=== PATIENT | female | born 1945 | race Caucasian/White ===

== ENCOUNTER 2021-05-01 16:25 | Emergency (ER) | payer MEDICARE, SELFPAY ==
[2021-05-01 16:26] VITALS: BP 185/93; PULSE 106; RESP 16; TEMP 35.8; O2SAT 93; BMI 34.3
--- NOTE | 2021-05-01 16:39 | EDS_ITS ---
HPI History of Present Illness Chief Complaint: Upper Extremity Injury Informant: patient Narrative Narrative: Patient was walking up a wet muddy hill and slipped. She fell forward and hit her left shoulder. She states she did not hit her head. This was a mechanical fall. This was not syncope. She never lost consciousness. The only area that hurts is her left shoulder. She is right-hand dominant. She has no trouble breathing. No back or spine pain. She was able to get up and come in here on her own. Motion makes it worse and keeping it still makes it better. [facility] Medical History Asthma Diabetes GERD (gastroesophageal reflux disease) Allergy/AdvReac Type Severity Reaction Status Date / Time codeine Allergy Nausea Verified 05/01/21 16:29 indomethacin [From Indocin] Allergy Shortness Verified 05/01/21 16:29 of breath Surgical History History of arthroscopy History of hysterectomy History of tonsillectomy and adenoidectomy Social History Smoking Status: Never smoker ROS ROS ED Constitutional Constitutional ED: Denies fever(s) Eyes Eyes: Denies blurry vision or change in vision Cardiovascular Cardiovascular: Denies chest pain or palpitations Respiratory/Chest Respiratory/Chest: Denies cough or dyspnea Gastrointestinal Gastrointestinal: Denies nausea or vomiting Musculoskeletal Musculoskeletal: Reports other Details: Left shoulder pain. See history of present illness. ; Denies back pain or neck pain Integumentary Denies rash Neurologic Neurologic: Denies headache(s) Hematologic/Lymphatic Hematologic/Lymphatic: Reports other; Denies easy bleeding or easy bruising EXAM Physical Exam Const Vital Signs: 05/01/21 16:26 Temperature 96.5 F L Temperature Source Temporal Pulse Rate 106 H Respiratory Rate 16 Blood Pressure 185/93 H Blood Pressure Mean 123 Pulse Ox 93 Oxygen Delivery Method Room Air Positive well nourished and well developed General Appearance ED: well developed and NAD; Negative for cyanotic or diaphoretic HEENT normocephalic and atraumatic; Negative for tenderness Eyes EOMs intact bilaterally Neck full ROM and supple General: Negative for tenderness Chest Wall inspection of chest normal and palpation of chest normal Resp normal respiratory effort and clear to auscultation bilaterally Resp Narrative: No asymmetry. Auscultation: Negative for rales, rhonchi or wheezes Cardio regular rate Back/Spine Cervical Spine: Negative for cervical spine tenderness Thoracic Spine / Upper Back: Negative for thoracic spinal tenderness Lumbar Spine / Lower Back: Negative for lumbar spinal tenderness Extremity normal to inspection Extremity Narrative: No visible contusion or abrasion. However, she does have tenderness at the proximal humerus area. She does not have tenderness at the acromion or clavicle or scapula. No tenderness further down the arm elbow forearm wrist or hand. Distal pulses sensation and clay miller are normal. Neuro oriented x3, no focal motor deficits and no sensory deficits noted Sensorium / Orientation: alert Psych mental status grossly normal Skin Lesions: no lesions Rashes: no rashes MDM MDM MDM Narrative Medical decision making narrative: 4 view x-ray of the left shoulder looked at by me and read by radiology does show a slight impacted fracture proximal humerus/humeral head. It is overall in good position. Patient is neurologically intact. She has good deltoid area sensation. She will be placed in a sling. She has hydrocodone at home that she takes for arthritis. That should be appropriate. I will give her number of orthopedic physician for follow-up. I explained this does need repeat x-ray. She should also be very careful with ambulation as a sling will throw off her balance. Discharge Plan Triage Chief Complaint: Upper Extremity Injury ED Provider: Davey Palma Dx/Rx/DC Orders Clinical Impression: Fall from slipping, Closed fracture of head of left humerus Instructions: ED Fracture, Shoulder Primary Care Provider: Edward Jacobs Referrals: Juvenal Pablo DO [STAFF PHYSICIAN] - 1 Week Disposition Disposition: Home, Self Care
--- NOTE | 2021-05-01 16:55 | RAD_ITS ---
STUDY: X-RAY - LEFT SHOULDER REASON FOR EXAM: Female, 76 years old. trauma, pain, fall onto left shoulder TECHNIQUE: 4 view(s) of the shoulder. COMPARISON: None. FINDINGS: There is moderate degenerative arthrosis of the glenohumeral articulation. There is degenerative arthrosis of the acromioclavicular joint without inferior osseous spur formation. Normal acromion. Nondisplaced fracture of the humeral neck. Diffuse soft tissue swelling. Normal visualized pulmonary apex. RAD/Shoulder min 2 Views IMPRESSION: Humeral neck fracture. Electronically Signed: Ashish Fernandez MD (Brooks) at 17:10 EST , Service support ,
== END 2021-05-01 18:11 | disposition home or self-care (01) ==
PROVIDERS: Emergency Provider Emergency Medicine; PCP Family Medicine
DX: S42.292A Other displaced fracture of upper end of left humerus, initial encounter for closed fracture (principal); W19.XXXA Unspecified fall, initial encounter; Y93.01 Activity, walking, marching and hiking
CPT/HCPCS: 73030; 99282

== ENCOUNTER 2022-04-06 20:52 | Inpatient (IN) | payer MEDICARE, SELFPAY ==
[2022-04-06 20:53] VITALS: BP 146/61; PULSE 86; RESP 19; TEMP 36.9; BMI 37.9
--- NOTE | 2022-04-06 22:06 | EKG12_ITS ---
Test Reason : DIZZINESS Blood Pressure : / mmHG Vent. Rate : 066 BPM Atrial Rate : 066 BPM P-R Int : 198 ms QRS Dur : 138 ms QT Int : 418 ms P-R-T Axes : 041 005 030 degrees QTc Int : 438 ms Normal sinus rhythm with sinus arrhythmia Right bundle branch block Abnormal ECG Confirmed by JNU RAMOS, GLO ([id number]), electronic news gathering editor RENAN GRIFFITH ([id number]) on 04/12/2022 10:34:13 AM Referred By: JAMI Confirmed By:EMILEE BARAHONA MD
--- NOTE | 2022-04-06 22:07 | EDS_ITS ---
HPI History of Present Illness Chief Complaint: Dizziness Detail of Chief Complaint: Dizziness and near syncope Informant: patient Narrative Narrative: Patient presents the emergency department complaint of dizziness and near syncopal episodes today since 6 PM about 5 episodes. Patient states initially she noticed it when she got out of the vehicle to walk to the house where she felt lightheaded and sweaty. Patient fell like she was going to pass out but did not. Patient describes some chest heaviness. She denies any radiation of chest pain to the arm or neck or jaw. She denies recent illness. Patient states that she had several more of these type of episodes this evening. Patient has no heart history. She does complain of some swelling to her left leg ever since she had a wound on it with infection that has since cleared up over the last several months. Patient denies shortness of breath. She denies abdominal pain. She denies blood in her stool or black tarry stool. PFSH PFS Medical History Asthma Diabetes GERD (gastroesophageal reflux disease) Home Medications hydrocodone-acetaminophen 5-325mg 5mg-325mg 1 tab PO Q6H PRN pain 3 days #10 tabs 05/01/21 [Rx Last Taken Unknown] ibuprofen 125 mg-acetaminophen 250 mg tablet (Advil Dual Action) 2 tab PO Q8H PRN arthritis 04/07/22 [History Last Taken Unknown] naproxen sodium 220 mg capsule (Aleve) 220 mg PO Q8H arthritis 04/07/22 [History Last Taken Unknown] Allergy/AdvReac Type Severity Reaction Status Date / Time codeine Allergy Nausea Verified 04/06/22 21:00 indomethacin [From Indocin] Allergy Shortness Verified 04/06/22 21:00 of breath Family History (Updated 04/07/22 @ 02:[address] Bc Aebrnathy MD) Other COPD (chronic obstructive pulmonary disease) Diabetes Heart disease Hypertension Surgical History History of arthroscopy History of hysterectomy History of tonsillectomy and adenoidectomy Social History Smoking Status: Never smoker ROS ROS ED Review of Systems ROS Unobtainable: other Constitutional Constitutional ED: Reports lethargy; Denies chills, fever(s), sweats or weight loss Eyes Eyes: Denies blurry vision, change in vision or diplopia ENT ENT ED: Denies rhinorrhea or sore throat Cardiovascular Cardiovascular: Reports chest pain; Denies orthopnea or racing heartbeat Respiratory/Chest Respiratory/Chest: Denies cough, dyspnea, dyspnea on exertion, orthopnea or s putum Gastrointestinal Gastrointestinal: Denies abdominal pain, diarrhea, nausea or vomiting Genitourinary Genitourinary ED: Denies dysuria, hematuria or urinary frequency Musculoskeletal Musculoskeletal: Reports other Details: Left leg swelling ; Denies arthralgias, back pain, myalgias or neck pain Integumentary Denies abscess, Abrasions or rash Neurologic Neurologic: Denies headache(s) or weakness Psychiatric Psychiatric: Denies anxiety, depression or suicidal thoughts Endocrine Endocrinology: Denies polydipsia, polyphagia or polyuria Hematologic/Lymphatic Hematologic/Lymphatic: Denies easy bleeding, easy bruising or lymphadenopathy Allergic/Immunologic Allergic/Immunologic ED: Denies mouth swelling, tongue swelling or urticaria EXAM Physical Exam Const Vital Signs: 04/06/22 20:53 04/06/22 20:59 04/06/22 23:13 Temperature 98.4 F Temperature Source Temporal Pulse Rate 86 Pulse Rate [Lying] Pulse Rate [Sitting (for 1 minute prior to obtaining)] Pulse Rate [Standing (for 1 minute prior to obtaining)] Respiratory Rate 19 H 17 Respiratory Effort Normal Non-Labored Respiratory Pattern Normal Blood Pressure 146/61 H Blood Pressure [Lying] Blood Pressure [Sitting (for 1 minute prior to obtaining)] Blood Pressure [Standing (for 1 minute prior to obtaining)] Blood Pressure Mean 89 Blood Pressure Mean [Lying] Blood Pressure Mean [Sitting (for 1 minute prior to obtaining)] Blood Pressure Mean [Standing (for 1 minute prior to obtaining)] Pulse Ox 98 Oxygen Delivery Method Room Air Room Air 04/07/22 00:28 Temperature Temperature Source Pulse Rate Pulse Rate [Lying] 89 Pulse Rate [Sitting (for 1 minute prior to obtaining)] 95 Pulse Rate [Standing (for 1 minute prior to obtaining)] 94 Respiratory Rate Respiratory Effort Respiratory Pattern Blood Pressure Blood Pressure [Lying] 132/55 H Blood Pressure [Sitting (for 1 minute prior to obtaining)] 148/78 H Blood Pressure [Standing (for 1 minute prior to obtaining)] 147/80 H Blood Pressure Mean Blood Pressure Mean [Lying] 80 Blood Pressure Mean [Sitting (for 1 minute prior to obtaining)] 101 Blood Pressure Mean [Standing (for 1 minute prior to obtaining)] 102 Pulse Ox Oxygen Delivery Method Positive well nourished and well developed General Appearance ED: well developed and NAD HEENT Reports TM's clear and moist mucous membranes normocephalic and atraumatic; Negative for trauma or tenderness Tympanic Membrane ED: Yes TM's clear Eyes PERRL and EOMs intact bilaterally General Eye ED: Negative for pale conjunctiva or scleral icterus Neck no lymphadenopathy, supple and no JVD General: Negative for tenderness Chest Wall inspection of chest normal and palpation of chest normal Chest: Negative for tenderness Resp normal respiratory effort and clear to auscultation bilaterally Effort and Inspection: Negative for respiratory distress or pain with movement Auscultation: Negative for rhonchi, wheezes or diminished lung sounds Cardio regular rate, regular rhythm, S1 normal heart sound, S2 normal heart sound and no murmurs Peripheral Pulses: pulses 2+ throughout GI normal to inspection, nondistended, normoactive bowel sounds, soft to palpation, non-tender, non-distended and no masses Back/Spine no CVA tenderness and no thoracic nor lumbar tenderness Extremity Extremity Narrative: +2 edema left lower extremity compared to the right. Negative Homans' sign. No ropes or cords palpated. No evidence of cellulitis. General Extremety ED: Yes edema General Extremity: edema Neuro oriented x3, CN's II-XII intact bilaterally, no sensory deficits noted and gait normal Sensorium / Orientation: awake, alert, oriented to person, oriented to place and oriented to time Motor Exam: strength 5/5 throughout and strength abnormal Psych mental status grossly normal Skin no rashes or lesions noted and no wounds MDM MDM MDM Narrative Medical decision making narrative: IV line established on arrival. Orthostatic vital signs obtained were normal. CBC with differential was normal. Chemistries and initial troponin were negative. Urinalysis was normal. Delta troponin obtained was elevated at 66. Patient was given aspirin. Patient was started on heparin drip. Case discussed with hospitalist will evaluate patient for admission. Venous Doppler of left lower extremity was negative for DVT. Lab Data Attestation: I reviewed the patient's lab results. Labs: Laboratory Results - last 24 hr 04/06/22 04/06/22 04/06/22 21:04 21:04 22:39 WBC 8.2 RBC 4.88 Hgb 12.9 Hct 40.0 MCV 82.0 MCH 26.4 L MCHC 32.3 RDW Std Deviation 42.2 RDW Coeff of Ron 14.3 Plt Count 205 MPV 9.9 Immature Gran % (Auto) 0.500 Neut % (Auto) 71.7 H Lymph % (Auto) 20.6 [place] % (Auto) 5.5 Eos % (Auto) 1.5 Baso % (Auto) 0.2 Absolute Neuts (auto) 5.9 Absolute Lymphs (auto) 1.69 Nucleated RBC % 0 Sodium 139 Potassium 3.8 Chloride 107 Carbon Dioxide 26.0 Anion Gap 6 BUN 15 Creatinine 0.55 Estim Creat Clear Calc 38.35 Est GFR (MDRD) Af Amer 137 Est GFR (MDRD) Non-Af 114 BUN/Creatinine Ratio 27.3 H Glucose 122 H Calcium 9.4 Troponin I High Sens 15 Urine Color Yellow Urine Clarity Clear Urine pH 6.0 Ur Specific [place] 1.020 Urine Protein 30 H Urine Glucose (UA) Normal Urine Ketones 5 H Urine Occult Blood Negative Urine Nitrite Negative Urine Bilirubin Negative Urine Urobilinogen Normal Ur Leukocyte Esterase 25 H Urine RBC 0 SEEN Urine WBC 0-5 SEEN Ur Squamous Epith Cells 0-5 SEEN Urine Bacteria 0 SEEN Urine Mucus 0 SEEN 04/07/22 00:50 WBC RBC Hgb Hct MCV MCH MCHC RDW Std Deviation RDW Coeff of Ron Plt Count MPV Immature Gran % (Auto) Neut % (Auto) Lymph % (Auto) [place] % (Auto) Eos % (Auto) Baso % (Auto) Absolute Neuts (auto) Absolute Lymphs (auto) Nucleated RBC % Sodium Potassium Chloride Carbon Dioxide Anion Gap BUN Creatinine Estim Creat Clear Calc Est GFR (MDRD) Af Amer Est GFR (MDRD) Non-Af BUN/Creatinine Ratio Glucose Calcium Troponin I High Sens 66 H Urine Color Urine Clarity Urine pH Ur Specific [place] Urine Protein Urine Glucose (UA) Urine Ketones Urine Occult Blood Urine Nitrite Urine Bilirubin Urine Urobilinogen Ur Leukocyte Esterase Urine RBC Urine WBC Ur Squamous Epith Cells Urine Bacteria Urine Mucus Radiography Diagnostic Testing: Clinical Impression(s) from Imaging Studies Venous Duplex 04/06/22 22:09 IMPRESSION: No finding of DVT. Limited DOPPLER evaluation. Electronically Signed: Tra Rodriguez MD at 23:11 EST , 1 view chest are obtained interpreted by myself as no acute disease process. Radiology in agreement. EKG Initial EKG: Attestation: I personally reviewed and interpreted this EKG as follows: Comments: Sinus rhythm with a right bundle branch block with no acute ST segment changes Discharge Plan Dx/Rx/DC Orders Clinical Impression: Dizziness, Non-ST elevated myocardial infarction Disposition Disposition: Acute Care Hospital [facility]
--- NOTE | 2022-04-06 22:09 | US_ITS ---
STUDY: VENOUS DOPPLER ULTRASOUND - LEFT LOWER EXTREMITY REASON FOR EXAM: Female, 77 years old. LT LEG SWELLING X 3 MONTHS TECHNIQUE: Ultrasound evaluation of the deep vein system to include bolaños-scale imaging and compression was performed. Bolaños-scale imaging and Doppler sonographic evaluation, including duplex spectral analysis and qualitative color flow sonography, was performed. COMPARISON: None. FINDINGS: Common Femoral Vein: Normal compression. Normal color Doppler. Common Femoral Vein/Greater Saphenous Junction: Normal compression. Deep Femoral Vein: Not seen Femoral Proximal: Normal compression. Femoral Middle: Normal compression. Normal color Doppler. Femoral Distal: Normal compression. Popliteal Vein: Normal compression. Normal color Doppler. Posterior Tibial Vein: Normal compression. Peroneal Vein: Normal compression. There is no demonstrated deep venous thrombosis. Left lower leg swelling and edema. Normal compression, DOPPLER of the right common femoral vein. US/Venous Duplex Imag/Limited/Uni IMPRESSION: No finding of DVT. Limited DOPPLER evaluation. Electronically Signed: Tra Rodriguez MD at 23:11 EST ,
[2022-04-06] MEDS: 0.9% Normal Saline 1,000 ML 1000 ML IV (22:15)
[2022-04-06 22:20] LABS: Absolute Lymphocyte Count 1.69 X10^3/uL (0.83-4.51); Absolute Neutrophil Count 5.9 X10^3/uL (2.0-7.7); Basophil# 0.02 X10^3/uL; Basophil% 0.2 % (0-1); Eosinophil# 0.12 X10^3/uL; Eosinophils% 1.5 % (0-5); Hemoglobin 12.9 g/dL (12.0-15.0); Lymphocyte # 1.69 X10^3/ul (0.83-4.51); Lymphocyte % 20.6 % (19-41); Mean Corp Hgb Conc 32.3 g/dL (32-36); Mean Corpuscular Hgb 26.4 pg (27.0-32.0); Mean Platelet Vol. 9.9 fl (6.2-12.0); Monocyte# 0.45 X10^3/uL; Monocyte% 5.5 % (0-10); NRBC Flagged by Analyzer 0 % (0-5); Neutrophil # 5.88 X10^3/uL (2.7-7.7); Neutrophil % 71.7 % (47-70); Platelet Count 205 K/mm3 (150-450); RBC Distribution Width CV 14.3 % (11.6-14.6); RBC Distribution Width SD 42.2 fl (35.1-43.9); Red Blood Count 4.88 M/mm3 (4.2-5.4); White Blood Count 8.2 K/mm3 (4.4-11.0)
[2022-04-06 22:43] LABS: Bacteria 0 SEEN /hpf (None Seen); Mucous, Urine 0 SEEN /hpf (<or=2+); Red Blood Cells-Urine 0 SEEN /hpf (0-5)
[2022-04-06 22:46] LABS: Anion Gap 6 (5-15); BUN 15 mg/dL (7-18); BUN/Creat Ratio 27.3 RATIO (10-20); Calcium,Total 9.4 mg/dL (8.5-10.1); Chloride 107 mmol/L (98-107); Creatinine, Serum 0.55 mg/dL (0.55-1.02); EST Glomerular Filtration Rate 114 mL/min (>60); Est Glom Filt Rate - Afr Amer 137 mL/min (>60); Estimated Creatinine Clearance 38.35 ml/min; Glucose 122 mg/dL (74-106); Potassium 3.8 mmol/L (3.5-5.1); Sodium Level 139 mmol/L (136-145); Troponin-I HS 15 pg/mL (3.0-54.0)
[2022-04-06 22:56] LABS: Color, Urine Yellow (Yellow); Glucose, Dipstick Normal (Normal); Ketone-Dipstick 5 mg/dl (Negative); Leukocyte Esterase-Dipstick 25 /ul (Negative); Nitrite-Dipstick Negative (Negative); Occult Blood-Urine Negative /ul (Negative); Protein-Dipstick 30 mg/dl (Negative); Urine Bilirubin Dipstick Negative (Negative); Urine Clarity Clear (Clear); Urine Urobilinogen Normal (Normal)
[2022-04-06 23:04] LABS: Squamous Epithelial Cells - UA 0-5 SEEN /hpf (5-10); White Blood Cells 0-5 SEEN /hpf (0-5)
[2022-04-06 23:13] VITALS: RESP 17; O2SAT 98
[2022-04-07] VITALS (18 sets, daily range): BP systolic 129–152; BP diastolic 55–82; PULSE 60–95; RESP 16–20; TEMP 36.4–36.7; O2SAT 19–98; BMI 35.4
[2022-04-07 01:23] LABS: Troponin-I HS 66 pg/mL (3.0-54.0)
--- NOTE | 2022-04-07 01:38 | RAD_ITS ---
INDICATION: chest pain EXAMINATION/TECHNIQUE: X-RAY - XR Chest 1 View COMPARISON: None. FINDINGS: LINES/DEVICES: None. LUNGS: No consolidation, edema or effusion. No pneumothorax. MEDIASTINUM AND CARDIOVASCULAR STRUCTURES: Cardiac silhouette not enlarged. Central airways and mediastinal contour are unremarkable. BONES AND SOFT TISSUES: Status post right shoulder arthroplasty. Degenerative changes in the left shoulder throughout the visualized spine. No acute osseous abnormality.. RAD/Chest 1 View (Portable) IMPRESSION: No acute cardiopulmonary disease. Electronically Signed: Ignacio Marie MD at 2:18 EST ,
--- NOTE | 2022-04-07 01:44 | HP.PCM.HOS_ITS ---
HPI - General General Date of Admission: 04/07/22 Date of Service: 04/07/22 Chief Complaint: presyncope HPI Narrative LUCIO GR, is a 77 F with a significant history of diabetes mellitus; asthma; and GERD who presents emergency department with multiple episodes of presyncope. Has symptoms started about 3 hours before presentation. For the majority of the symptoms she was standing/walking but on one episode she was sitting down. Associated with her symptoms is lightheadedness, diaphoresis, and chest heaviness. Also she felt nauseous. Patient is a retired nurse. Because patient's bilateral hands and bilateral feet where tremulous, patient's who is disabled felt that he could not take care of her and called paramedics. When paramedics arrived the patient systolic blood pressure was about 196. Patient denies history of hypertension. Patient report that her father from a massive heart attack when her father was 67 years PENDING SALE TO [facility] Medical History Asthma Diabetes GERD (gastroesophageal reflux disease) Home Medications hydrocodone-acetaminophen 5-325mg 5mg-325mg 1 tab PO Q6H PRN pain 3 days #10 tabs 05/01/21 [Rx Last Taken Unknown] Allergy/AdvReac Type Severity Reaction Status Date / Time codeine Allergy Nausea Verified 04/06/22 21:00 indomethacin [From Indocin] Allergy Shortness Verified 04/06/22 21:00 of breath Family History (Updated 04/07/22 @ 02:[address] Bc Abernathy MD) Other COPD (chronic obstructive pulmonary disease) Diabetes Heart disease Hypertension Surgical History History of arthroscopy History of hysterectomy History of tonsillectomy and adenoidectomy Social History Smoking Status: Never smoker ROS ROS Narrative Pertinent positives and pertinent negatives as noted in HPI. All other systems were reviewed and are negative Vital Signs Vital Signs Vital Signs: 04/06/22 20:53 04/06/22 20:59 04/06/22 23:13 Temperature 98.4 F Temperature Source Temporal Pulse Rate 86 Pulse Rate [Lying] Pulse Rate [Sitting (for 1 minute prior to obtaining)] Pulse Rate [Standing (for 1 minute prior to obtaining)] Respiratory Rate 19 H 17 Respiratory Effort Normal Non-Labored Respiratory Pattern Normal Blood Pressure 146/61 H Blood Pressure [Lying] Blood Pressure [Sitting (for 1 minute prior to obtaining)] Blood Pressure [Standing (for 1 minute prior to obtaining)] Blood Pressure Mean 89 Blood Pressure Mean [Lying] Blood Pressure Mean [Sitting (for 1 minute prior to obtaining)] Blood Pressure Mean [Standing (for 1 minute prior to obtaining)] Pulse Ox 98 Oxygen Delivery Method Room Air Room Air 04/07/22 00:28 Temperature Temperature Source Pulse Rate Pulse Rate [Lying] 89 Pulse Rate [Sitting (for 1 minute prior to obtaining)] 95 Pulse Rate [Standing (for 1 minute prior to obtaining)] 94 Respiratory Rate Respiratory Effort Respiratory Pattern Blood Pressure Blood Pressure [Lying] 132/55 H Blood Pressure [Sitting (for 1 minute prior to obtaining)] 148/78 H Blood Pressure [Standing (for 1 minute prior to obtaining)] 147/80 H Blood Pressure Mean Blood Pressure Mean [Lying] 80 Blood Pressure Mean [Sitting (for 1 minute prior to obtaining)] 101 Blood Pressure Mean [Standing (for 1 minute prior to obtaining)] 102 Pulse Ox Oxygen Delivery Method Weight Weight: 97.2 kg Body Mass Index (BMI) 37.9 Physical Exam Narrative Physical exam: General: Well-nourished, well-developed. Head: Normocephalic, atraumatic, no tenderness Eyes: Vision is grossly intact. EOMI ENT, no trauma, moist mucous membranes, no rhinorrhea Neck: Nontender, No thyromegaly. CVS: Regular rate and rhythm. S1-S2 present. No murmur, gallop or rub. Respiratory : clear to auscultation bilaterally, chest wall nontender, no wheezing Abdomen: Soft, nontender, nondistended, normal bowel sounds, no masses : Deferred Back: Nontender, no CVA tenderness. Extremities: Nontender full range of motion. 2+ edema of left lower extremity (attributed to injury) Skin: Normal color, no trauma, abrasions Neuro: Alert, oriented, cranial nerves II through XII grossly intact. Psychiatry: Normal mood. Normal affect. Not depressed. Not anxious. Results Lab / Micro Data Result Diagrams: 04/06/22 21:04 04/06/22 21:04 Labs: Laboratory Results - last 24 hr 04/06/22 21:04: WBC 8.2, RBC 4.88, Hgb 12.9, Hct 40.0, MCV 82.0, MCH 26.4 L, MCHC 32.3, RDW Std Deviation 42.2, RDW Coeff of Ron 14.3, Plt Count 205, MPV 9.9, Immature Gran % (Auto) 0.500, Neut % (Auto) 71.7 H, Lymph % (Auto) 20.6, [place] % (Auto) 5.5, Eos % (Auto) 1.5, Baso % (Auto) 0.2, Absolute Neuts (auto) 5.9, Absolute Lymphs (auto) 1.69, Nucleated RBC % 0 04/06/22 21:04: Sodium 139, Potassium 3.8, Chloride 107, Carbon Dioxide 26.0, Anion Gap 6, BUN 15, Creatinine 0.55, Estim Creat Clear Calc 38.35, Est GFR (MDRD) Af Amer 137, Est GFR (MDRD) Non-Af 114, BUN/Creatinine Ratio 27.3 H, Glucose 122 H, Calcium 9.4, Troponin I High Sens 15 04/06/22 22:39: Urine Color Yellow, Urine Clarity Clear, Urine pH 6.0, Ur Specific [place] 1.020, Urine Protein 30 H, Urine Glucose (UA) Normal, Urine Ke tones 5 H, Urine Occult Blood Negative, Urine Nitrite Negative, Urine Bilirubin Negative, Urine Urobilinogen Normal, Ur Leukocyte Esterase 25 H, Urine RBC 0 SEEN, Urine WBC 0-5 SEEN, Ur Squamous Epith Cells 0-5 SEEN, Urine Bacteria 0 SEEN, Urine Mucus 0 SEEN 04/07/22 00:50: Troponin I High Sens 66 H Radiology Impression Venous Duplex 04/06/22 22:09 IMPRESSION: No finding of DVT. Limited DOPPLER evaluation. Electronically Signed: Tra Rodriguez MD at 23:11 EST , Assessment & Plan Assessment/Plan (1) Non-ST elevated myocardial infarction: (2) Diabetes: PLAN: Plan Non STEMI Place on a monitored bed at U Actual CXR image was independently visualized. No acute cardiopulmonary process was noted. I agree with radiologist interpretation Actual EKG tracing was independently visualized. EKG tracing showed right bundle branch block with T wave inversions and flattening without any ST elevations. Initial troponin at the emergency department was 15. Repeat was 66. Patient's heart score is 6 points; started on heparin drip at emergency department and continued. Echocardiogram ordered ASA 81 mg p.o. daily ordered Morphine as needed for pain ordered check lipid panel. Serial cardiac enzymes ordered Stat EKG as needed for chest pain Diabetes mellitus Patient with mild hyperglycemia on presentation Monitor Accu-Cheks Correction scale insulin ordered. DVT prophylaxis: Not indicated as patient has been started on heparin drip for NSTEMI. Charges/Coding Visit Charges Inpatient E&M: 46256 Init Hosp L3
[2022-04-07] MEDS: Aspirin 81 MG TAB.CHEW 324 MG PO (01:50)
[2022-04-07] MEDS: Heparin Injection (Vial) 5,000 UNIT/ML VIAL 7500 UNIT IV (01:57)
[2022-04-07] MEDS: HEPARIN/D5w 25,000 UNITS 25,000 UNITS/250 ML IV.SOLN. 14 UNITS CONT INF (01:58)
[2022-04-07 02:00] LABS: Partial Thromboplast Time 24.8 Seconds (24.1-36.2); Prothrombin Time (Protime)PT. 13.3 SECONDS (11.7-14.9)
--- NOTE | 2022-04-07 03:02 | ECHOD_ITS ---
Reason For Study: Chest Pain Procedure This was a 2D Doppler, Color Flow transthoracic echocardiogram. Bubble Study Performed. Exam performed portable in patient room. Left Ventricle Normal LV size. Left ventricular systolic function is normal. The estimated ejection fraction is 65 %. No regional wall motion abnormalities noted. Right Ventricle Normal RV size. Normal systolic function. Atria Normal left atrium. Normal right atrium. Bubble contrast study negative for right to left interatrial shunt. Mitral Valve Normal mitral valve. Mild (1+) eccentric mitral valve insufficiency. Tricuspid Valve Normal tricuspid valve. Mild tricuspid valve insufficiency. Pulmonary artery systolic pressure is 20 mmHg. Aortic Valve Normal aortic valve. Trisinus/trileaflet aortic valve. Pulmonic Valve Normal pulmonic valve. Great Vessels Normal aortic root. The pulmonary artery is normal size. Normal inferior vena cava. Pericardium/Pleural No pericardial effusion. Medication Performed a rapid injection of agitated mix of 9 cc saline and 1cc air to assess for atrial septal defect. MMode/2D Measurements & Calculations LVIDd: 5.0 cm IVSd: 1.5 cm Ao root diam: 3.5 cm LVIDs: 3.1 cm LVPWd: 1.0 cm LA dimension: 4.1 cm RVDd: 3.8 cm FS: 38.3 % LAV(MOD-bp): 68.6 ml LA A4 area: 22.3 cm2 RA A4 area: 19.0 cm2 LAV(MOD-bp) Indexed: 35.5 ml/m2 LAV(MOD-sp2): 65.1 ml LAV(MOD-sp4): 67.7 ml Time Measurements MV dec time: 0.23 sec Doppler Measurements & Calculations MV E max norberto: 74.2 cm/sec Lat Peak E' Norberto: 13.6 cm/sec Med Peak E' Norberto: 8.7 cm/sec MV A max norberto: 96.2 cm/sec E/E' lat: 5.5 E/E' med: 8.5 MV E/A: 0.77 MV V2 max: 105.1 cm/sec MV P1/2t max norberto: 99.5 cm/sec Ao V2 max: 201.4 cm/sec MV max P.4 mmHg MV P1/2t: 76.7 msec Ao max P.2 mmHg MV V2 mean: 57.2 cm/sec MV dec slope: 379.8 cm/sec2 Ao V2 mean: 131.0 cm/sec MV mean P.6 mmHg Ao mean P.9 mmHg MV V2 VTI: 30.3 cm MVA(P1/2t): 2.9 cm2 Ao V2 VTI: 41.9 cm AV (velocity ratio): 0.81 LV V1 max: 144.8 cm/sec MR max norberto: 611.5 cm/sec PA V2 max: 139.5 cm/sec LV V1 max P.4 mmHg MR max P.6 mmHg PA V2 mean: 92.5 cm/sec LV V1 mean P.6 mmHg MR mean norberto: 467.2 cm/sec LV V1 mean: 100.9 cm/sec MR mean P.1 mmHg LV V1 VTI: 33.9 cm MR VTI: 196.9 cm TR max norberto: 193.5 cm/sec TR max P.0 mmHg ECHO/Echo Complete Interpretation Summary Normal LV size. Left ventricular systolic function is normal. The estimated ejection fraction is 65 %. Pulmonary artery systolic pressure is 20 mmHg. Bubble contrast study negative for right to left interatrial shunt. Ordering Physician: Bc Abernathy Referring Physician: Edward Jacobs Performed By: Siddhartha Muñoz RCS
--- NOTE | 2022-04-07 03:02 | EKG12_ITS ---
Test Reason : ADMISSION EKG Blood Pressure : / mmHG Vent. Rate : 066 BPM Atrial Rate : 066 BPM P-R Int : 200 ms QRS Dur : 138 ms QT Int : 418 ms P-R-T Axes : 046 026 -08 degrees QTc Int : 438 ms Normal sinus rhythm with sinus arrhythmia Right bundle branch block Abnormal ECG When compared with ECG of 06-APR-2022 23:00, MANUAL COMPARISON REQUIRED, DATA IS UNCONFIRMED Confirmed by ABEL RAMOS, HANH ([id number]), newspaper or periodical editor RENAN GRIFFITH ([id number]) on 04/12/2022 11:31:26 AM Referred By: TOOTIE Confirmed By:HANH ROMAN MD
[2022-04-07 05:09] LABS: Cholesterol 140 mg/dL (200); High Density Lipoprotein 85 mg/dL; Triglycerides 55 mg/dL; Very Low Density Lipoprotein 11 mg/dL (5-40)
[2022-04-07 05:15] LABS: Troponin-I HS 91 pg/mL (3.0-54.0)
[2022-04-07 07:15] LABS: Bedside Glucose 137 mg/dL (74-106)
--- NOTE | 2022-04-07 07:29 | CON.PCM.CA_ITS ---
Assessment & Plan Assessment/Plan (1) Non-ST elevated myocardial infarction: PLAN: She does present with dizziness and is noted to have a non-ST elevation myocardial infarction by cardiac enzymes. Her chest discomfort was not very typical. I would recommend on the basis of her rising enzymes and had presyncope that we evaluate her with a left heart catheterization. Depending on the findings further recommendations will be made. The risk benefits alternatives have been explained to her and she understands and agrees to proceed. (2) Dizziness: PLAN: She does have mild dizziness which appears to have resolved. Her blood work appears to be stable. I will like us to obtain an echocardiogram to exclude any valvular abnormalities though it does not appear to be apparent on her physical exam. Thank you for allowing me to participate in the care of your patient. Please don't hesitate to call if any issues arise. HPI Consult Data Date of Consult: 04/07/22 HPI Narrative HPI Narrative: LUCIO GR, is a 77 F who presents to the emergency room with a presyncopal episode as well as chest heaviness. She said that she was performing her usual activities and was suddenly seized by this yesterday. She has had no previous history of hypertension but has a history of diabetes. This happened on 2 other occasions yesterday. The emergency medical squad was called and her blood pressure was noted to be elevated when they saw her. She was brought to the emergency room she was noted to be in sinus rhythm with a right bundle branch block. Cardiac enzymes were obtained which started rising. Cardiology was called for further evaluation and management. She denies any further chest pain at this particular time she has had no previous cardiac issues. PENDING SALE TO [facility] Medical History Asthma Diabetes GERD (gastroesophageal reflux disease) Home Medications hydrocodone-acetaminophen 5-325mg 5mg-325mg 1 tab PO Q6H PRN pain 3 days #10 tabs 05/01/21 [Rx Last Taken Unknown] ibuprofen 125 mg-acetaminophen 250 mg tablet (Advil Dual Action) 2 tab PO Q8H PRN arthritis 04/07/22 [History Last Taken Unknown] naproxen sodium 220 mg capsule (Aleve) 220 mg PO Q8H arthritis 04/07/22 [History Last Taken Unknown] Allergy/AdvReac Type Severity Reaction Status Date / Time codeine Allergy Nausea Verified 04/06/22 21:00 indomethacin [From Indocin] Allergy Shortness Verified 04/06/22 21:00 of breath Family History Other COPD (chronic obstructive pulmonary disease) Diabetes Heart disease Hypertension Surgical History History of arthroscopy History of hysterectomy History of tonsillectomy and adenoidectomy Social History Smoking Status: Never smoker ROS Constitutional Constitutional: Denies fever(s) or weight loss Eyes Eyes: Reports systems reviewed and no addt'l complaints, except as documented ENT HEENT: Reports systems reviewed and no addt'l complaints, except as documented Cardiovascular Cardiovascular: Denies chest pain at rest, chest pain with activity, dyspnea at rest, dyspnea on exertion, edema, palpitations or paroxysmal nocturnal dyspnea Respiratory/Chest Respiratory/Chest: Denies dyspnea on exertion, productive cough, shortness of breath at rest or shortness of breath with exertion Gastrointestinal Gastrointestinal: Denies change in bowel habits, nausea, vomiting or weight changes Genitourinary Genitourinary: Denies difficulty urinating Musculoskeletal Musculoskeletal: Denies joint stiffness or muscle weakness Integumentary Integumentary: Denies lesions Neurologic Neurologic: Denies dizziness or syncope Psychiatric Psychiatric: Denies anxiety Endocrine Endocrinology: Denies excessive sweating or fatigue Hematologic/Lymphatic Hematologic/Lymphatic: Denies anemia Allergic/Immunologic Allergic/Immunologic: Denies seasonal rhinorrhea Physical Exam Const alert, oriented x3 and no apparent distress General Appearance: cooperative HEENT hearing grossly normal bilaterally Head and Scalp: atraumatic Eyes EOMs intact bilaterally Neck General: normal visual inspection Chest inspection of chest normal and palpation of chest normal Resp normal respiratory effort Auscultation: clear to auscultation bilaterally Cardio regular rate, regular rhythm, S1 normal heart sound and S2 normal heart sound Jugular Venous Distention: JVD GI normal to inspection, nondistended, normoactive bowel sounds Extremity normal capillary refill and no pedal edema Peripheral Pulses: Yes pulses 2+ throughout and femoral pulses present Skin no rashes or lesions noted Neuro oriented x3 and CN's II-XII intact bilaterally Psych Appearance: grossly normal and appropriate Risk Stratification Risk Stratification Applicable: Yes Age >/= 65: Yes >/= 3 CAD Risk Factors (HTN, HLD, DM, family hx of CAD, or current smoker): No Aspirin Use in the Past 7 Days: No Severe Angina (>/= episodes in 24 hours): No EKG ST Changes >/= 0.5mm: No Positive Cardiac Marker: Yes CASSY Risk Stratification Score: 2 CASSY % Risk: 8% Risk Objective Data Vital Signs: Vital Signs Temp Pulse Resp BP Pulse Ox O2 Del Method 98.0 F 78 18 150/67 H 98 Room Air 04/07/22 03:03 04/07/22 03:03 04/07/22 03:03 04/07/22 03:03 04/07/22 03:03 04/07/22 03:40 Oxygen Delivery Method Room Air Weight: 200 lb 6.403 oz Body Mass Index (BMI) 35.4 Intake & Output: Intake and Output for Last 24 Hours 04/05/22 04/06/22 04/07/22 23:59 23:59 23:59 Intake Total 1000 / 1000 Balance 1000 / 1000 Lab / Micro Data Result Diagrams: 04/06/22 21:04 04/06/22 21:04 Labs: Laboratory Results - last 24 hr 04/06/22 21:04: WBC 8.2, RBC 4.88, Hgb 12.9, Hct 40.0, MCV 82.0, MCH 26.4 L, MCHC 32.3, RDW Std Deviation 42.2, RDW Coeff of Ron 14.3, Plt Count 205, MPV 9.9, Immature Gran % (Auto) 0.500, Neut % (Auto) 71.7 H, Lymph % (Auto) 20.6, [place] % (Auto) 5.5, Eos % (Auto) 1.5, Baso % (Auto) 0.2, Absolute Neuts (auto) 5.9, Absolute Lymphs (auto) 1.69, Nucleated RBC % 0 04/06/22 21:04: Sodium 139, Potassium 3.8, Chloride 107, Carbon Dioxide 26.0, Anion Gap 6, BUN 15, Creatinine 0.55, Estim Creat Clear Calc 38.35, Est GFR (MDRD) Af Amer 137, Est GFR (MDRD) Non-Af 114, BUN/Creatinine Ratio 27.3 H, Glucose 122 H, Calcium 9.4, Troponin I High Sens 15 04/06/22 22:39: Urine Color Yellow, Urine Clarity Clear, Urine pH 6.0, Ur Specific [place] 1.020, Urine Protein 30 H, Urine Glucose (UA) Normal, Urine Ketones 5 H, Urine Occult Blood Negative, Urine Nitrite Negative, Urine Bilirubin Negative, Urine Urobilinogen Normal, Ur Leukocyte Esterase 25 H, Urine RBC 0 SEEN, Urine WBC 0-5 SEEN, Ur Squamous Epith Cells 0-5 SEEN, Urine Bacteria 0 SEEN, Urine Mucus 0 SEEN 04/07/22 00:50: Troponin I High Sens 66 H 04/07/22 01:40: PT 13.3, INR 1.0, APTT 24.8 04/07/22 04:35: Triglycerides 55, Cholesterol 140, LDL Cholesterol 44, VLDL Cholesterol 11, HDL Cholesterol 85 04/07/22 04:35: Troponin I High Sens 91 H 04/07/22 06:20: POC Glucose 137 H Cardiology Labs/Tests 04/06/22 21:04: WBC 8.2, RBC 4.88, Hgb 12.9, Hct 40.0, MCV 82.0, MCH 26.4 L, MCHC 32.3, Plt Count 205, MPV 9.9, Immature Gran % (Auto) 0.500, Neut % (Auto) 71.7 H, Lymph % (Auto) 20.6, [place] % (Auto) 5.5, Eos % (Auto) 1.5, Baso % (Auto) 0.2, Absolute Neuts (auto) 5.9, Nucleated RBC % 0 04/06/22 21:04: Sodium 139, Potassium 3.8, Chloride 107, Carbon Dioxide 26.0, Anion Gap 6, BUN 15, Creatinine 0.55, Est GFR (MDRD) Af Amer 137, Est GFR (MDRD) Non-Af 114, BUN/Creatinine Ratio 27.3 H, Glucose 122 H, Calcium 9.4 04/06/22 22:39: Urine Color Yellow, Urine Clarity Clear, Urine pH 6.0, Ur Specific [place] 1.020, Urine Protein 30 H, Urine Glucose (UA) Normal, Urine Ketones 5 H, Urine Occult Blood Negative, Urine Nitrite Negative, Urine Bilirubin Negative, Urine Urobilinogen Normal, Ur Leukocyte Esterase 25 H, Urine RBC 0 SEEN, Urine WBC 0-5 SEEN 04/07/22 01:40: PT 13.3, INR 1.0, APTT 24.8 04/07/22 04:35: Triglycerides 55, Cholesterol 140, LDL Cholesterol 44, VLDL Cholesterol 11, HDL Cholesterol 85 Rhythm: EKG: ECHO: Stress Test: Cardiac Cath: PCI: CT Surgery: Holter monitor: EPS: PPM: CXR: Chest CT Scan: Radiography Diagnostic Testing: Radiology Impression Venous Duplex 04/06/22 22:09 IMPRESSION: No finding of DVT. Limited DOPPLER evaluation. Electronically Signed: Tra Rodriguez MD at 23:11 EST , Chest X-Ray 04/07/22 01:38 IMPRESSION: No acute cardiopulmonary disease. Electronically Signed: Ignacio Marie MD at 2:18 EST ,
--- NOTE | 2022-04-07 08:14 | CASEMGMT ---
According to the [employer] medicare website, the following are in-network tertiary facilities: [facility], [place], [facility], [facility], [facility], [facility], and . Kelby FENG CM
[2022-04-07] MEDS: 0.9% Normal Saline 1,000 ML 15 ML IV (09:42)
[2022-04-07] MEDS: Aspirin E.C. 81 MG Tablet PO (09:42)
--- NOTE | 2022-04-07 11:01 | CL.D_ITS ---
Patient Name: LUCIO GR Study Date: 04/07/2022 Performing: Matthew Frances MD Ht: 63 inches 160.02 cm : 1945 Wt: 200.4 lbs 90.9 kg Age: 77 Gender: female BSA: 1.94 PROCEDURE(S) PERFORMED [id number])LHC/COR DC11-([id number])AO ROOT ANGIO WITH HEART CATH CLINICAL PROFILE AND INDICATIONS Indications: Suspected CAD Heart Failure: None Stress/Imaging Stress/Image Study Performed: No CAD Presentations: Symptom unlikely to be ischemic. CONCLUSIONS Non obstructive coronary arteries Calcified Lad with no high grade stenosis RECOMMENDATIONS Medical therapy DESCRIPTION OF PROCEDURE The patient arrived to the procedure lab. The risks and benefits of the procedure as well as a full description of our services here and current unavailability of surgical backup were fully explained to the patient and/or their significant other prior to the catheterization. The Timeout was completed, verifying the correct patient and procedure. The patient's procedural site was prepped and draped in the usual fashion. Local anesthetic was given subcutaneously to right radial region with Lidocaine 2%. Using a modified Seldinger technique, arterial access was obtained via the right radial artery, a 6Fr sheath was inserted. Left Coronary Artery selective angiography was performed in multiple views using a 5 Fr. 4.0 [place] catheter. Right Coronary Artery selective angiography was then performed in multiple views using a 5 Fr. JR 4 catheter. Ascending (root) aorta selective angiography was then performed in single view. Ascending (root) aorta selective angiography was then performed in single view.The arterial sheath was pulled and a TR Band was applied for hemostasis w/ 10ml air CORONARY ANGIOGRAPHY DOMINANCE: Right Dominant LEFT HEART ASSESSMENT Left Ventricular Ejection Fraction: by LV Gram 60 % Normal LV wall motion Normal Left Ventricular systolic function LEFT MAIN: Mild calcification LEFT ANTERIOR DESCENDING ARTERY: Moderate luminal irregularities up to 50% MID LAD: Moderate calcification DIAGONAL 1: Ostial - 70 % Stenosis CIRCUMFLEX ARTERY: Angiographically normal RIGHT CORONARY ARTERY: Mild luminal irregularities less than 30% AORTIC ROOT: Dilated COMPLICATIONS No Complications PROCEDURE MEDICATIONS Versed 1 mg IV Fentanyl 50 mcg IV Versed 1 mg IV Oxygen: 2 L/min via nasal cannula Heparin given IA 04/07/2022 10:35:51 Verapamil 2.5mg, Ntg 100mcgs, 3000 units of Heparin given IA 04/07/2022 10:35:51 IV Bolus: .9 NaCl ml total 04/07/2022 10:41:02 SUMMARY OF HEMODYNAMIC DATA Time AIR REST ECG 10:19:05 Art 182/42 (77) 10:30:25 AO 88/39 (60) SA 10:39:26 AO 117/53 (80) 10:51:09 Signed By Matthew Frances MD On 04/07/2022 11:01:06 Matthew Frances MD
--- NOTE | 2022-04-07 11:45 | CASEMGMT ---
JUNG JUSTICE Assessment: Face to Face with patient for initial transition planning/care coordination assessment. JUNG JUSTICE introduced self and role at [facility], pt voices understanding and consents to assessment. Pt is lying in bed in no distress on room air. Pt is A/Ox 4 and answers all questions appropriately. Care providers, pharmacy,?and demographics verified/updated. ? Presentation: Pt c/o sudden onset dizzy, lightheaded, heaviness Admitting dx: NSTEMI PCP: Arlene Specialists: Retinal specialist; neurologist for parkinsons Preferred Pharmacy: [facility] Insurance: [facility] Prescription Benefit:? [employer] Living Will/HPOA: Pt does have LW/HPOA and is aware they are not on file at [facility]. Pt states her , Errol Nuñez, is HPOA. LNOK: Errol Nuñez, /HPOA; Andreina Blood, friend Living Arrangements: Pt lives with and cares for in 1 story home and states no concerns at home. Pt states has a muscular disease and she assists him with all care. Pt is independent with ADL's. Pt states her neighbors are assisting at home at this time. Transportation: Pt drives self and states no transportation concerns. DME/HHC: Pt states they have the following DME in home: cane, rollator, raised toilet seat, multiple grab bars, mohan lift, and walk/roll-in shower. Pt states does not use equipment for herself. Pt states no hx of HHC or SNF. Pt states no concerns with going home at time of discharge. Pt is retired. Pt states does not smoke cigarettes but does occasionally drink ETOH. Pt voices no further concerns/needs. CM to follow for any further discharge planning/needs. Advised pt to ask for CM if any further questions/concerns/needs arise, voices understanding. Pt Goal: Home ? Plan[place]G JUSTICE
--- NOTE | 2022-04-07 11:57 | CHAPLAIN ---
Type of Pastoral Visit _x__ Initial Visit ___ Follow-up Visit ___ On-call Visit ___ General Patient Visit ___ Spiritual Assessment ___ Family Conference ___ Bereavement ___ Rapid Response ___ Code Blue ___ Other (describe below) Pastoral Care Referral From _x__ Patient ___ Family ___ Nurse ___ Physician ___ Park Landscape Architect ___ Garbage Truck Dispatcher ___ Other (describe below) Sacrament/Intervention _x__ Active listening ___ Anointing ___ Yazidi ___ Bereavement ___ Communion ___ Martha exploration ___ _x__ Life review _x__ Prayer ___ Reconciliation ___ Sacrament of Sick _x__ Supportive presence ___ Wedding ___ Other (describe below) Pastoral Comments patient had just returned from the [employer]; pt came in by squad last night and states that was all frightening; pt reports that procedure went well and that she is getting great care; pt concern is for her disabled who is home alone, but has neighbors that watch out for him; 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
[2022-04-07] MEDS: 0.9% Normal Saline 1,000 ML 75 ML IV (11:59)
--- NOTE | 2022-04-07 14:14 | PCM.DC.SUM ---
Providers Date of Admission: 04/07/22 Date of Discharge: 04/07/22 Primary Care Physician: Dr. Edward Jacobs MD Consultations 04/07/22 03:02 Consult: Cardiology Routine Consulting Provider: Marvin Brasher Reason for Consult: Chest Pain EMERGENT Consult: No MD Notified: Yes Date Notified: 04/07/22 Time Notified: 01:41 Method of Notification: Text Reason For Visit: NSTEMI Diagnosis Discharge Diagnosis (1) Dizziness: Status: Acute Code(s): R42 - Dizziness and giddiness (2) Elevated troponin I level: Status: Acute Code(s): R77.8 - Other specified abnormalities of plasma proteins Medications at Discharge Home Medications hydrocodone-acetaminophen 5-325mg 5mg-325mg 1 tab PO Q6H PRN pain 3 days #10 tabs 05/01/21 ibuprofen 125 mg-acetaminophen 250 mg tablet (Advil Dual Action) 2 tab PO Q8H PRN arthritis 04/07/22 naproxen sodium 220 mg capsule (Aleve) 220 mg PO Q8H arthritis 04/07/22 Hospital Course Operations None Procedures 2-D Echocardiogram and Cardiac catheterization Summary of Care Provided Minutes Spent on Discharge: 30 Hospital Course: Mrs. Nuñez is a 77-year-old white female who presented to the emergency department at [facility] on 04/07/2022 with presyncopal complaints. The patient reported that she had multiple episodes of presyncope that started about 3 hours prior to presentation. She was predominantly standing and walking during these episodes however she had 1 episode while sitting down. Associated symptoms were lightheadedness, diaphoresis, nausea, and chest heaviness. The patient did develop bilateral hand and feet tremor during an episode which concerned her so he called the paramedics. He is disabled at baseline and she is his primary caregiver. When the paramedics arrived her systolic blood pressure was about 196 and the patient denies any history of hypertension. Patient did indicate her father of a massive heart attack when she was 66. Heart score on presentation was reported at 6. Her EKG showed some T wave inversions and flattening without any ST elevation and a right bundle branch block. Her initial troponin in the emergency department was 15 however repeat was 66. She was started on a heparin drip as well as aspirin and as needed morphine for pain. A lipid panel was obtained during her hospital course and was unremarkable. Cardiac enzymes peaked at 91 and the patient was evaluated by cardiology. Given her troponin elevation she was taken to the Case Management Director. Cardiac catheterization revealed nonobstructive coronary artery disease with a calcified LAD and no high-grade stenosis. LAD showed moderate luminal irregularities up to 50%, 70% ostial stenosis of the first diagonal, angiographically normal circumflex artery, and mild luminal irregularities of less than 30% in the RCA. Aortic root was felt to be dilated. An echocardiogram was obtained and showed an EF of 65% with pulmonary artery systolic pressure of 20 mmHg and a negative bubble study. The aorta was reported as unremarkable. Patient had no further elevated blood pressures or presyncope events. Orthostatic blood pressures were obtained and found to be normal. Given the fact this is the first time this is ever occurred to her we deferred any further testing including an event or Holter monitor at this time however if she has recurrent episodes I would strongly advise this via pain as an outpatient. No new medication changes were made. The patient was instructed to avoid NSAIDs given recent dye load for cardiac catheterization for the next 48 hours. It was recommended she use Tylenol up to 3 g daily for pain during this time. Discharge diagnoses: Troponin elevation -suspect related to hypertension Nonobstructive CAD DM-2-diet controlled Osteoarthritis Obesity-BMI 35.5 Physical Exam Const alert, oriented x3, no apparent distress, healthy appearing and well nourished Constitutional Narrative: Obese, older, white female sitting up in bed, appears comfortable nontoxic, nursing at bedside General Appearance: cooperative, comfortable, well kempt and well developed Orientation / Consciousness: awake, oriented to person, oriented to place and oriented to time Exam Limitations: no limitations Nutritional Appearance: obese HEENT normocephalic, head/scalp atraumatic, hearing grossly normal bilaterally and moist oral mucous membranes Resp normal respiratory effort, no retractions, no use of accessory muscles and clear to auscultation bilaterally Auscultation: Negative for crackles, rhonchi or wheezes Cardio regular rate, regular rhythm, S1 normal heart sound, no murmurs, no rub, no gallops and no clicks GI normal to inspection, nondistended, normoactive bowel sounds, soft to palpation and non-tender Extremity no clubbing, cyanosis or edema Extremity Narrative: 2+ pedal pulses, right radial pulse with compression device post cath in place, no signs of bleeding or ecchymosis Skin no rashes or lesions noted, no wounds, skin turgor normal and no jaundice Neuro oriented x3, CN's II-XII intact bilaterally, moves all extremities and no focal motor deficits Speech: speech normal Psych affect normal Psych Narrative: Very pleasant and appropriately interactive Weight / BMI Weight Weight: 90.9 kg Body Mass Index (BMI) 35.4 ABG / Lab / Microbiology Data Result Diagrams: 04/06/22 21:04 04/06/22 21:04 Laboratory: Laboratory Results - last 24 hr 04/06/22 21:04: WBC 8.2, RBC 4.88, Hgb 12.9, Hct 40.0, MCV 82.0, MCH 26.4 L, MCHC 32.3, RDW Std Deviation 42.2, RDW Coeff of Ron 14.3, Plt Count 205, MPV 9.9, Immature Gran % (Auto) 0.500, Neut % (Auto) 71.7 H, Lymph % (Auto) 20.6, [place] % (Auto) 5.5, Eos % (Auto) 1.5, Baso % (Auto) 0.2, Absolute Neuts (auto) 5.9, Absolute Lymphs (auto) 1.69, Nucleated RBC % 0 04/06/22 21:04: Sodium 139, Potassium 3.8, Chloride 107, Carbon Dioxide 26.0, Anion Gap 6, BUN 15, Creatinine 0.55, Estim Creat Clear Calc 38.35, Est GFR (MDRD) Af Amer 137, Est GFR (MDRD) Non-Af 114, BUN/Creatinine Ratio 27.3 H, Glucose 122 H, Calcium 9.4, Troponin I High Sens 15 04/06/22 22:39: Urine Color Yellow, Urine Clarity Clear, Urine pH 6.0, Ur Specific [place] 1.020, Urine Protein 30 H, Urine Glucose (UA) Normal, Urine Ketones 5 H, Urine Occult Blood Negative, Urine Nitrite Negative, Urine Bilirubin Negative, Urine Urobilinogen Normal, Ur Leukocyte Esterase 25 H, Urine RBC 0 SEEN, Urine WBC 0-5 SEEN, Ur Squamous Epith Cells 0-5 SEEN, Urine Bacteria 0 SEEN, Urine Mucus 0 SEEN 04/07/22 00:50: Troponin I High Sens 66 H 04/07/22 01:40: PT 13.3, INR 1.0, APTT 24.8 04/07/22 04:35: Triglycerides 55, Cholesterol 140, LDL Cholesterol 44, VLDL Cholesterol 11, HDL Cholesterol 85 04/07/22 04:35: Troponin I High Sens 91 H 04/07/22 06:20: POC Glucose 137 H 04/07/22 08:08: APTT 93.0 H* Radiography Diagnostic Testing: Radiology Impression Venous Duplex 04/06/22 22:09 IMPRESSION: No finding of DVT. Limited DOPPLER evaluation. Electronically Signed: Tra Rodriguez MD at 23:11 EST , Chest X-Ray 04/07/22 01:38 IMPRESSION: No acute cardiopulmonary disease. Electronically Signed: Ignacio Marie MD at 2:18 EST , Echocardiogram 04/07/22 03:02 Interpretation Summary Normal LV size. Left ventricular systolic function is normal. The estimated ejection fraction is 65 %. Pulmonary artery systolic pressure is 20 mmHg. Bubble contrast study negative for right to left interatrial shunt. Ordering Physician: Bc Abernathy Referring Physician: Edward Jacobs Performed By: Siddhartha Muñoz RCS Meaningful Use Info Meaningful Use Diagnoses (Choose all that apply): None applicable Discharge Plan Admission Admit Date/Time: 04/07/22 01:36 Primary Reason for Your Visit: Presyncope and Chest pain Attending Provider: Melina Fay Primary Care Provider: Edward Jacobs Consulting Providers: Marvin Brasher ; Bc Abernathy Instructions Additional Instructions / Restrictions: While NSAIDs on hold okay to use 1 g of Tylenol scheduled every 8 hours with total Tylenol intake of 3 g or less daily Discharge Orders/Prescriptions Prescriptions: Continued hydrocodone-acetaminophen 5-325 mg tablet 1 tab PO Q6H PRN (Reason: pain) 3 Days Qty: 10 0RF Held naproxen sodium [Aleve] 220 mg Capsule 220 mg PO Q8H Hold Instructions: Resume on 04/10/22. Advil Dual Action 125-250 mg Tablet 2 tab PO Q8H PRN (Reason: arthritis) Hold Instructions: Resume on 04/10/22. Referrals / Follow Up: Edward Jacobs MD [Primary Care Provider] - Within 1 Month Disposition Disposition (needs filled in before D/C Order can be placed): Home, Self Care Charges/Coding Visit Charges Inpatient E&M: 20865 Disch Hosp
[2022-04-07 14:45] LABS: Bedside Glucose 141 mg/dL (74-106)
[2022-04-07] MEDS: Acetaminophen 500 MG Tablet 1000 MG PO (15:28)
== END 2022-04-07 17:01 | disposition home or self-care (01) | DRG 287 ==
LOC: ED 04-07 01:46 → PCU 04-07 02:06
PROVIDERS: Admitting Provider Hospitalist; Emergency Provider Emergency Medicine; PCP Family Medicine; Visit Provider Internal Medicine
DX: I25.10 Atherosclerotic heart disease of native coronary artery without angina pectoris (principal); E11.65 Type 2 diabetes mellitus with hyperglycemia; I10 Essential (primary) hypertension; I45.10 Unspecified right bundle-branch block; J45.909 Unspecified asthma, uncomplicated; K21.9 Gastro-esophageal reflux disease without esophagitis; R77.8 Other specified abnormalities of plasma proteins; R55 Syncope and collapse; R60.0 Localized edema; E66.9 Obesity, unspecified; Z68.35 Body mass index [BMI] 35.0-35.9, adult
CPT/HCPCS: 36415; 71045; 80048; 80061; 81001; 82962; 84484; 85025; 85610; 85730; 93005; 93306; 93454; 93567; 93971; 99152; 99153; 99285; J7030; Q9957; Q9967; A4216; C1769; C1894

== ENCOUNTER → 2022-09-02 | Outpatient (CLI) | payer MEDICARE, SELFPAY ==
[2022-09-02 14:08] LABS: Absolute Lymphocyte Count 1.79 X10^3/uL (0.83-4.51); Absolute Neutrophil Count 3.7 X10^3/uL (2.0-7.7); Basophil# 0.02 X10^3/uL; Basophil% 0.3 % (0-1); Eosinophil# 0.24 X10^3/uL; Eosinophils% 3.9 % (0-5); Hematocrit 38.6 % (37-47); Hemoglobin 12.7 g/dL (12.0-15.0); Lymphocyte # 1.79 X10^3/ul (0.83-4.51); Lymphocyte % 28.8 % (19-41); Mean Corp Hgb Conc 32.9 g/dL (32-36); Mean Corpuscular Hgb 26.7 pg (27.0-32.0); Mean Corpuscular Volume 81.1 fL (81-99); Mean Platelet Vol. 9.6 fl (6.2-12.0); Monocyte# 0.44 X10^3/uL; Monocyte% 7.1 % (0-10); NRBC Flagged by Analyzer 0 % (0-5); Neutrophil % 59.6 % (47-70); Platelet Count 235 K/mm3 (150-450); RBC Distribution Width SD 44.6 fl (35.1-43.9); Red Blood Count 4.76 M/mm3 (4.2-5.4); White Blood Count 6.2 K/mm3 (4.4-11.0)
[2022-09-02 14:32] LABS: Vitamin D,25 Hydroxy 38.4 ng/mL
[2022-09-02 14:36] LABS: Anion Gap 9 (5-15); BUN 13 mg/dL (7-18); BUN/Creat Ratio 18.8 RATIO (10-20); Calcium,Total 9.5 mg/dL (8.5-10.1); Chloride 108 mmol/L (98-107); Creatinine, Serum 0.69 mg/dL (0.55-1.02); EST Glomerular Filtration Rate 87 mL/min (>60); Est Glom Filt Rate - Afr Amer 106 mL/min (>60); Free T3 2.7 pg/mL (2.18-3.98); Glucose 165 mg/dL (74-106); Potassium 4.4 mmol/L (3.5-5.1); Sodium Level 142 mmol/L (136-145); T4 Free Direct 0.96 ng/dL (0.76-1.46); Thyroid Stim Hormone (TSH) 2.21 uIU/mL (0.358-3.74)
== END | disposition home or self-care (01) ==
PROVIDERS: PCP Family Medicine; Referring Provider Nurse Practitioner Gerontology; Visit Provider Nurse Practitioner Gerontology
DX: R53.83 Other fatigue (principal); E55.9 Vitamin D deficiency, unspecified
CPT/HCPCS: 36415; 80048; 82306; 84439; 84443; 84481; 85025

== ENCOUNTER → 2023-09-04 | Outpatient (CLI) | payer MEDICARE, SELFPAY ==
[2023-09-04 16:53] LABS: Absolute Lymphocyte Count 2.12 X10^3/uL (0.83-4.51); Absolute Neutrophil Count 3.4 X10^3/uL (2.0-7.7); Basophil# 0.01 X10^3/uL; Basophil% 0.2 % (0-1); Eosinophil# 0.18 X10^3/uL; Eosinophils% 2.9 % (0-5); Hematocrit 36.4 % (37-47); Hemoglobin 11.3 g/dL (12.0-15.0); Lymphocyte # 2.12 X10^3/ul (0.83-4.51); Lymphocyte % 33.8 % (19-41); Mean Corpuscular Hgb 25.2 pg (27.0-32.0); Mean Corpuscular Volume 81.1 fL (81-99); Mean Platelet Vol. 8.9 fl (6.2-12.0); Monocyte# 0.57 X10^3/uL; Monocyte% 9.1 % (0-10); NRBC Flagged by Analyzer 0 % (0-5); Neutrophil # 3.38 X10^3/uL (2.7-7.7); Neutrophil % 53.7 % (47-70); Platelet Count 241 K/mm3 (150-450); RBC Distribution Width CV 15.4 % (11.6-14.6); RBC Distribution Width SD 45.3 fl (35.1-43.9); Red Blood Count 4.49 M/mm3 (4.2-5.4); White Blood Count 6.3 K/mm3 (4.4-11.0)
[2023-09-04 17:23] LABS: BNP,B-Type NATRIURETIC PEPTIDE 14.5 pg/mL (0-100)
[2023-09-04 17:33] LABS: Anion Gap 5 (5-15); BUN 13 mg/dL (7-18); BUN/Creat Ratio 20.9 RATIO (10-20); Calcium,Total 9.5 mg/dL (8.5-10.1); Chloride 106 mmol/L (98-107); Creatinine, Serum 0.62 mg/dL (0.55-1.02); EST Glomerular Filtration Rate 98 mL/min (>60); Est Glom Filt Rate - Afr Amer 119 mL/min (>60); Glucose 185 mg/dL (74-106); Potassium 4.4 mmol/L (3.5-5.1); Sodium Level 137 mmol/L (136-145); Thyroid Stim Hormone (TSH) 1.79 uIU/mL (0.358-3.74)
== END | disposition home or self-care (01) ==
PROVIDERS: PCP Family Medicine; Referring Provider Nurse Practitioner Gerontology; Visit Provider Nurse Practitioner Gerontology
DX: R06.09 Other forms of dyspnea (principal); R53.83 Other fatigue
CPT/HCPCS: 36415; 80048; 83880; 84443; 85025

== ENCOUNTER 2023-09-13 18:39 | Emergency (ER) | payer MEDICARE, SELFPAY ==
[2023-09-13] VITALS (8 sets, daily range): BP systolic 102–181; BP diastolic 39–148; PULSE 37–67; RESP 16–22; TEMP 36–36.7; O2SAT 93–98; BMI 35.5
--- NOTE | 2023-09-13 19:29 | EKG12_ITS ---
Test Reason : SYNCOPE Blood Pressure : / mmHG Vent. Rate : 036 BPM Atrial Rate : 036 BPM P-R Int : 000 ms QRS Dur : 126 ms QT Int : 488 ms P-R-T Axes : 049 083 -14 degrees QTc Int : 377 ms Critical Test Result: Low HR Complete Heart Block with junctional escape Right bundle branch block Abnormal ECG Confirmed by Juvenal Myers ([id number]), makeup editor RENAN GRIFFITH ([id number]) on 09/18/2023 9:22:15 AM Referred By: Confirmed By:Juvenal Myers
--- NOTE | 2023-09-13 19:35 | RAD_ITS ---
STUDY: X-RAY CHEST REASON FOR EXAM: Female, 78 years old. Chest pain TECHNIQUE: Single AP portable view of the chest. COMPARISON: None. FINDINGS: There are monitoring devices. There are mild lower lung interstitial increased opacities. There is no demonstrated pleural abnormality. Normal size heart. Normal mediastinum and negrito. Normal visualized pulmonary arteries. Normal visualized aortic arch and descending thoracic aorta. Normal visualized thoracic spine. There is right shoulder replacement. There is degenerative change of the left shoulder. There is no demonstrated abnormality of the visualized soft tissue structures of the upper abdomen. RAD/Chest 1 View (Portable) IMPRESSION: Mild lower lung interstitial edema or infiltrates. Electronically Signed: Scot Giles MD at 19:58 EDT ,
[2023-09-13 19:41] LABS: Absolute Lymphocyte Count 1.46 X10^3/uL (0.83-4.51); Absolute Neutrophil Count 5.4 X10^3/uL (2.0-7.7); Basophil# 0.02 X10^3/uL; Basophil% 0.3 % (0-1); Eosinophil# 0.05 X10^3/uL; Eosinophils% 0.7 % (0-5); Hematocrit 36.2 % (37-47); Hemoglobin 11.1 g/dL (12.0-15.0); Lymphocyte # 1.46 X10^3/ul (0.83-4.51); Lymphocyte % 19.6 % (19-41); Mean Corp Hgb Conc 30.7 g/dL (32-36); Mean Corpuscular Hgb 24.8 pg (27.0-32.0); Mean Platelet Vol. 9.8 fl (6.2-12.0); Monocyte# 0.52 X10^3/uL; NRBC Flagged by Analyzer 0 % (0-5); Neutrophil # 5.35 X10^3/uL (2.7-7.7); Neutrophil % 71.7 % (47-70); Platelet Count 231 K/mm3 (150-450); RBC Distribution Width CV 15.4 % (11.6-14.6); RBC Distribution Width SD 45.4 fl (35.1-43.9); Red Blood Count 4.47 M/mm3 (4.2-5.4); White Blood Count 7.5 K/mm3 (4.4-11.0)
[2023-09-13] MEDS: Oxymetazoline 0.05% 1 SPRAY SPRAY.BTL 2 SPRAY NASAL (19:45)
[2023-09-13 20:10] LABS: Anion Gap 4 (5-15); BUN 18 mg/dL (7-18); Calcium,Total 8.7 mg/dL (8.5-10.1); Chloride 109 mmol/L (98-107); Creatinine, Serum 1.38 mg/dL (0.55-1.02); EST Glomerular Filtration Rate 39 mL/min (>60); Est Glom Filt Rate - Afr Amer 47 mL/min (>60); Estimated Creatinine Clearance 35.72 ml/min; Glucose 319 mg/dL (74-106); Potassium 4.9 mmol/L (3.5-5.1); Sodium Level 138 mmol/L (136-145); Troponin-I HS 51 pg/mL (3.0-54.0)
--- NOTE | 2023-09-13 23:02 | EX.ED.DYSGE1 ---
HPI History of Present Illness Chief Complaint: Syncope Informant: patient Onset/Context/Timing Onset: Today Context: Sudden Onset Current Severity: Mild Maximum Severity: Moderate Narrative Narrative: 78-year-old female history of diabetes prior LA. Was at home today around 1215 passed out. When she fell she hit the floor and injured her nose. She has had intermittent bleeding from her nose. And decided come in. No cardiac history. She is on losartan but no medications for heart rate. Prior similar symptoms: No Recent Illness/Hospitalization: No PFSH PFSH Medical History GERD (gastroesophageal reflux disease) Asthma Diabetes no medical history Home Medications ?Medication ?Instructions ?Recorded ?Last Taken ?Type ibuprofen 125 mg-acetaminophen 250 2 tab PO Q8H PRN arthritis 04/07/22 Unknown History mg tablet (Advil Dual Action) naproxen sodium 220 mg capsule 220 mg PO Q8H arthritis 04/07/22 Unknown History (Aleve) coffee extract 100 mg-phosphatidyl cap PO 06/13/22 Unknown History serine 100 mg capsule (Neuriva Original) ezetimibe 10 mg tablet (Zetia) 10 mg PO DAILY 06/13/22 Unknown History glucosamine [id number]-Gspeoqdcg 1 tab PO DAILY 06/13/22 Unknown History josemanuel 1,500 mg-400 unit-100 mg tablet (Osteo Bi-Flex (5-Loxin)) insulin detemir U-100 100 unit/mL 40 unit subcut QHS 06/13/22 Unknown History (3 mL) subcutaneous pen (Levemir FlexTouch U-100 Insulin) losartan 50 mg tablet 50 mg PO DAILY 06/13/22 Unknown History cihjwymmdbry-Bk-uotp-minerals tab PO DAILY 06/13/22 Unknown History pantoprazole 40 mg tablet,delayed 40 mg PO DAILY 06/13/22 Unknown History release (Protonix) sitagliptin phosphate 50 1 tab PO BID 06/13/22 Unknown History mg-metformin 1,000 mg tablet (Janumet) cholecalciferol (vitamin D3) 50 4,000 unit PO DAILY 03/06/23 Unknown History mcg (2,000 unit) tablet (Vitamin D3) furosemide 40 mg tablet (Lasix) 40 mg PO .PRN #30 tabs 03/06/23 Unknown Rx hydrocodone 7.5 mg-acetaminophen 1 tab PO Q6H PRN pain 03/06/23 Unknown History 325 mg tablet insulin human U-100 NPH-regulr See Rx Instructions subcut .COMPLEX 03/06/23 Unknown History 70-30 mix 100 unit/mL subcutaneous susp (Novolin 70/30 U-100 Insulin) omega-3 acid ethyl esters 1 gram 2 cap PO BID 03/06/23 Unknown History capsule vit C-vit O-fjthjq-rvwqzzer capsule cap PO BID 09/04/23 Unknown History albuterol sulfate 90 mcg/actuation inhalation PRN SOB 09/13/23 Unknown History aerosol inhaler (Ventolin HFA) Allergy/AdvReac Type Severity Reaction Status Date / Time codeine Allergy Nausea Verified 09/13/23 18:40 indomethacin (From Indocin) Allergy Shortness Verified 09/13/23 18:40 of breath Family History Other COPD (chronic obstructive pulmonary disease) Diabetes Heart disease Hypertension Surgical History History of esophagogastroduodenoscopy (EGD) History of arthroscopy History of hysterectomy History of tonsillectomy and adenoidectomy Social History Smoking Status: Never smoker ROS ROS ED ROS Narrative Recent fatigue. No vomiting, diarrhea or fever. Review of Systems ROS Unobtainable: Denies due to encephalopathy Constitutional Constitutional ED: Denies chills or fever(s) Eyes Eyes: Denies blurry vision ENT ENT ED: Denies ear pain Cardiovascular Cardiovascular: Reports chest pain Respiratory/Chest Respiratory/Chest: Denies cough, dyspnea or dyspnea on exertion Gastrointestinal Gastrointestinal: Denies abdominal pain Genitourinary Genitourinary ED: Denies dysuria or hematuria Musculoskeletal Musculoskeletal: Denies arthralgias, back pain, myalgias or neck pain Integumentary Denies abscess, Abrasions or rash Neurologic Neurologic: Denies headache(s) Psychiatric Psychiatric: Denies anxiety or depression Endocrine Endocrinology: Denies cold intolerance Hematologic/Lymphatic Hematologic/Lymphatic: Reports none Allergic/Immunologic Allergic/Immunologic ED: Denies mouth swelling, tongue swelling or urticaria EXAM Physical Exam Narrative Exam Narrative: 78-year-old female sitting upright in bed. Vital signs are stable. Except her heart rates in the 30s. However she has a blood pressure of 116 and 47. She is awake alert talking. H EENT exam pupils round react to light. She has an abrasion on her nose. She is dried blood in both naris. She has nasal tenderness. Dentition intact. Neck nontender. Scalp nontender. Back nontender. Lungs clear to auscultation. Heart bradycardic rate in the 30s. Chest wall nontender. Abdomen soft nontender. Pelvic girdle intact. Moving all 4 extremities. No deformity. Normal range of motion. Normal conflict resolution professional strength. Normal dorsi plantarflexion. Neurologically she is awake alert. No focal motor deficits. Answering questions following commands. Const Vital Signs: 09/13/23 18:40 09/13/23 19:17 09/13/23 19:24 Temperature 96.8 F L Temperature Source Temporal Pulse Rate 67 38 L Respiratory Rate 18 22 H Respiratory Effort Short of Breath Blood Pressure 102/39 L 124/39 H Blood Pressure Mean 60 67 Pulse Ox 96 95 Oxygen Delivery Method Room Air Room Air Oxygen Flow Rate (L/min) 09/13/23 19:29 09/13/23 20:09 09/13/23 20:42 Temperature Temperature Source Pulse Rate 38 L 38 L Respiratory Rate 21 H 19 H Respiratory Effort Blood Pressure 181/148 H 129/53 H Blood Pressure Mean 159 78 Pulse Ox 94 93 Oxygen Delivery Method Non-Rebreather Room Air Room Air Oxygen Flow Rate (L/min) 15 09/13/23 21:00 09/13/23 21:00 09/13/23 22:00 Temperature Temperature Source Pulse Rate 38 L 50 L 37 L Respiratory Rate 16 16 17 Respiratory Effort Blood Pressure 125/42 H 125/42 H 116/47 L Blood Pressure Mean 69 69 70 Pulse Ox 98 93 93 Oxygen Delivery Method Room Air Room Air Oxygen Flow Rate (L/min) 09/13/23 23:00 09/13/23 23:24 Temperature 98.0 F Temperature Source Pulse Rate 47 L 50 L Respiratory Rate 16 16 Respiratory Effort Blood Pressure 114/59 L 114/59 L Blood Pressure Mean 77 77 Pulse Ox 94 94 Oxygen Delivery Method Room Air Oxygen Flow Rate (L/min) Positive well nourished and well developed; Negative for cachectic, contractures or unkempt General Appearance ED: well developed; Negative for unkempt, cachectic, contractures or pallor Nutritional Appearance: Negative for cachectic HEENT Reports moist mucous membranes; Denies dry mucous membranes HEENT Narrative: Blood in both naris. Nasal tenderness. Nasal abrasion. Clinically nasal fracture. trauma Mouth ED: No dry mucous membranes Mouth: No dry mucous membranes Eyes PERRL and EOMs intact bilaterally General Eye ED: Negative for pale conjunctiva or scleral icterus Neck no lymphadenopathy, supple and no JVD General: Negative for tenderness Lymph Lymphatic: Negative for other Chest Wall inspection of chest normal and palpation of chest normal Chest: Negative for other Resp normal respiratory effort and clear to auscultation bilaterally Effort and Inspection: Negative for retractions Auscultation: Negative for rales, rhonchi or wheezes Cardio regular rate, regular rhythm, S1 normal heart sound, S2 normal heart sound and no murmurs Palpation: Negative for palpable S3 or palpable S4 Rate: Negative for bradycardia or tachycardic GI normal to inspection, nondistended, normoactive bowel sounds, non-tender, non-distended and no masses Auscultation: normoactive bowel sounds Palpation: soft; Negative for tender or guarding Back/Spine no CVA tenderness General Back: Negative for CVA tenderness or other Cervical Spine: Negative for cervical spine tenderness Thoracic Spine / Upper Back: Negative for thoracic spinal tenderness or paraspinal muscle tenderness Lumbar Spine / Lower Back: Negative for lumbar spinal tenderness Extremity normal to inspection Neuro oriented x3 and CN's II-XII intact bilaterally Sensorium / Orientation: alert; Negative for orientation impaired, lethargic or stuporous Motor Exam: strength 5/5 throughout Psych mental status grossly normal Appearance: Negative for unkempt Attitude: No agitated Mood & Affect: Negative for depressed, anxious or tearful Skin no rashes or lesions noted and no wounds General Skin Exam: Negative for jaundice or pallor Lesions: No lesion noted Rashes: No rashes noted Trauma: Negative for abrasion Wounds: Negative for wounds noted MDM MDM MDM Narrative Medical decision making narrative: Patient with low heart rate and passed out. Fell and hit her nose has a nosebleed. When Afrin nasal spray in her nose to stop bleeding. Cardiac workup. Suspect admission. Repeat exam patient doing well at 11 PM. Heart rates remains in the 30s. Blood pressure currently is 120/47. She is awake alert. Nosebleed stopped with Afrin soaked cotton balls. She does have tenderness over her nose but no deformity. I suspect a clinical nasal fracture. We discussed her test results. She is a retired nurse. I will speak to the hospitalist about admission. Due to the patient's EKG which we suspect is a third-degree heart block. She will need transferred because our pacemaker pier master assistant is out of town. I am speaking with Alistair Rowe about a potential transfer. History & Record Review Discussion w/independent historian: Patient and Family Additional record(s) reviewed:: Prior inpatient record, Prior outpatient record, Prior ED visit and Prior labs Lab Data Attestation: I reviewed the patient's lab results. Lab results narrative: CBC white count of 7. H&H 11.1 and 36 which is her baseline. Platelets 231. Electrolytes shows gap 4. BUN of 18 creatinine 1.3. Glucose 319. Troponin 51. Labs: Laboratory Results - last 24 hr 09/13/23 19:20 WBC 7.5 RBC 4.47 Hgb 11.1 L Hct 36.2 L MCV 81.0 MCH 24.8 L MCHC 30.7 L RDW Std Deviation 45.4 H RDW Coeff of Ron 15.4 H Plt Count 231 MPV 9.8 Immature Gran % (Auto) 0.700 Neut % (Auto) 71.7 H Lymph % (Auto) 19.6 [place] % (Auto) 7.0 Eos % (Auto) 0.7 Baso % (Auto) 0.3 Absolute Neuts (auto) 5.4 Absolute Lymphs (auto) 1.46 Nucleated RBC % 0 Sodium 138 Potassium 4.9 Chloride 109 H Carbon Dioxide 25.0 Anion Gap 4 L BUN 18 Creatinine 1.38 H Estim Creat Clear Calc 35.72 Est GFR (MDRD) Af Amer 47 L Est GFR (MDRD) Non-Af 39 L BUN/Creatinine Ratio 13.0 Glucose 319 H Calcium 8.7 Troponin I High Sens 51 Radiography Chest X-Ray - ED: 1 View, Read by ED Physician, Read by Radiologist, Heart, Lungs, Mediastinum, Bony Structures, No Acute Disease and Chronic Changes Diagnostic Testing: Clinical Impression(s) from Imaging Studies Chest X-Ray 09/13/23 19:35 IMPRESSION: Mild lower lung interstitial edema or infiltrates. Electronically Signed: Scot Giles MD at 19:58 EDT , Chest x-ray, portable, single view interpreted by myself and the radiologist shows no acute abnormality. Questionable lower lobe edema. Rhythm Strip Rhythm Strip: Sinus bradycardia rate of 36. Rate: 36 Ectopy: None EKG Initial EKG: Attestation: I personally reviewed and interpreted this EKG as follows: Interpretation: Sinus Bradycardia Comments: Sinus bradycardia rate of 36. Appears to be third-degree heart block.. No acute signs of LA or ischemia. Critical Care Time Critical Care Time: Yes Critical care time (excluding procedures): 30-74 minutes, Including time spent:, Discussing w/Patient &/or Family/Management Nurse Rn, Discussing w/Consultants, Arranging Admission or Transfer, Performing Direct Patient Care at Bedside and - (40 minutes.) Discharge Plan Dx/Rx/DC Orders Clinical Impression: Syncope, History of LA (myocardial infarction), History of diabetes mellitus, Fall, Anterior epistaxis, Fracture, nasal, Third degree heart block Disposition Disposition: Acute Care Hospital [facility]
[2023-09-14] VITALS: BP 135/50; PULSE 55; RESP 18; O2SAT 94
[2023-09-14 01:00] VITALS: BP 145/54; PULSE 41; RESP 20; O2SAT 92
[2023-09-14 02:00] VITALS: BP 126/43; PULSE 38; RESP 21; O2SAT 95
== END 2023-09-14 02:46 | disposition short-term general hospital (02) ==
PROVIDERS: Emergency Provider Emergency Medicine; PCP Family Medicine; Visit Provider Emergency Medicine
DX: R55 Syncope and collapse (principal); I44.2 Atrioventricular block, complete; E11.9 Type 2 diabetes mellitus without complications; R04.0 Epistaxis; K21.9 Gastro-esophageal reflux disease without esophagitis; J45.909 Unspecified asthma, uncomplicated; Z79.899 Other long term (current) drug therapy; R07.9 Chest pain, unspecified; I25.2 Old myocardial infarction; S02.2XXA Fracture of nasal bones, initial encounter for closed fracture; W19.XXXA Unspecified fall, initial encounter
CPT/HCPCS: 30901; 71045; 80048; 84484; 85025; 93005; 99285; A4216

== ENCOUNTER → 2023-09-19 | Outpatient (CLI) | payer MEDICARE, SELFPAY ==
--- NOTE | 2023-09-19 19:18 | CT_ITS ---
STUDY: CTA CHEST REASON FOR EXAM: Female, 78 years old. Dilated AR RADIATION DOSAGE (If Supplied By Facility): CTDIvol = ( 16.02 ) mGy, DLP = ( 511.08 ) mGycm TECHNIQUE: The examination was performed with the intravenous administration of IV 100mL Isovue-370. Post-processing of the angiographic images was performed, with multiplanar reformation and 3D reconstruction. Individualized dose optimization techniques were used for this CT. COMPARISON: Chest x-ray 09/13/2023 FINDINGS: Left subclavian pacemaker. Normal enhancement of the main pulmonary artery and right and left pulmonary arteries. Normal enhancement of the bilateral peripheral pulmonary arteries. There is no demonstrated pulmonary embolism. Normal thoracic aorta and visualized great vessels. There is no demonstrated aortic dissection. Normal heart and pericardium. Normal mediastinum. Normal hilar regions. Normal visualized trachea and bronchi. The lungs are well expanded. 4 mm noncalcified nodule in the periphery of the right middle lobe lobe lungs on image 119 and follow-up CT is recommended in 12 months document stability. Normal pleura. Normal chest wall structures. Normal osseous structures. Status post right shoulder arthroplasty. Normal visualized upper abdomen. CT/CTA Chest W/WO Contrast IMPRESSION: 1. No CT evidence of pulmonary embolism. 2. 4 mm noncalcified right middle lobe nodule and follow-up CT is recommended in 12 months document stability. Electronically Signed: Britton Shine MD at 20:58 EDT ,
== END | disposition home or self-care (01) ==
LOC: CT 19:13
PROVIDERS: PCP Family Medicine; Referring Provider Nurse Practitioner Gerontology; Visit Provider Nurse Practitioner Gerontology
DX: I77.810 Thoracic aortic ectasia (principal)
CPT/HCPCS: 71275; Q9967